=== PATIENT | male | born 1955 | race Caucasian/White ===

== ENCOUNTER 2018-05-13 11:18 | Day surgery (SDC) | payer BC ==
[~2018-05-13 11:18] MED LIST: Metoclopramide 10 MG/2 ML SDV IV PRN; Sodium Chloride 0.9% 1,000 ML IV SCH
[2018-05-13] MEDS ORDERED: Midazolam 1 MG/ML 5 ML SDV ONE (13:00)
[2018-05-13] MEDS ORDERED: Propofol 1,000 MG/100 ML SDV ONE (13:00)
[2018-05-13] MEDS ORDERED: Atropine 0.4 MG/ML SDV ONE (13:00)
--- NOTE | 2018-05-13 18:13 | OR ---
DATE OF OPERATION: 05/13/2018 PREOPERATIVE DIAGNOSIS: Screening colonoscopy. POSTOPERATIVE DIAGNOSIS: Screening colonoscopy. PROCEDURE: Colonoscopy. ANESTHESIA: MAC. ESTIMATED BLOOD LOSS: None. COMPLICATIONS: None. INDICATION FOR THE PROCEDURE: The patient is a 62-year-old male who was here for a screening colonoscopy. Last had a colonoscopy about 10 years ago. He has had no change in bowel habits since that time. He is here today for screening colonoscopy. DESCRIPTION OF PROCEDURE: Informed consent was obtained from the patient. The patient was taken to the operating room and placed on the table in left lateral decubitus position. Monitored anesthesia care was administered. Digital rectal exam performed and was normal. Colonoscope was then advanced through the anus directed toward the cecum. Cecum was reached and identified by the appendiceal orifice as well as ileocecal valve. Colonoscope was then slowly withdrawn. No masses. No polyps. No areas of ischemia or inflammation. No AV malformations. No diverticula. Retroflexion then performed in the rectum was also otherwise unremarkable. Colonoscope then withdrawn. FINDINGS: Normal colonoscopy. RECOMMENDATIONS: We would recommend repeat screening colonoscopy in 10 years. CHINTAN /[id number]
== END 2018-05-13 14:20 | disposition home or self-care (01) ==
LOC: LB.SDS 11:18
PROVIDERS: ATTEND Surgery
DX: Z12.11 Encounter for screening for malignant neoplasm of colon (principal); Z98.890 Other specified postprocedural states
CPT/HCPCS: 45378; J7030; J0461; J2250; J2704

== ENCOUNTER 2018-07-05 07:01 | Day surgery (SDC) | payer BC ==
[2018-07-05] MEDS ORDERED: Lactated Ringers 1,000 ML IV SCH (07:30)
[2018-07-05] MEDS ORDERED: Acetaminophen/HYDROcodone 325-5 MG Tab PO PRN (07:30)
[2018-07-05] MEDS: ceFAZolin 1 GM in Sodium Chloride 0.9% 50 ML IV ONE ×2 (09:15→15:27)
[2018-07-05] MEDS ORDERED: fentaNYL 250 MCG/5 ML SDV ONE (09:30)
[2018-07-05] MEDS ORDERED: Propofol 200 MG/20 ML SDV ONE (09:30)
--- NOTE | 2018-07-20 09:44 | OR ---
DATE OF OPERATION: 07/05/2018 PREOPERATIVE DIAGNOSIS: Right carpal tunnel syndrome. POSTOPERATIVE DIAGNOSIS: Right carpal tunnel syndrome. PROCEDURE: Right carpal tunnel release. ANESTHESIA: Inocencia block. SURGEON: Chintan Gaming MD [employer] INSPECTOR: Kalpesh Russell RN. SPECIMEN: None. DRAINS: None. ESTIMATED BLOOD LOSS: Minimal. COMPLICATIONS: None apparent. DESCRIPTION OF PROCEDURE: After informed consent was obtained, the patient was brought to the operating room, where a Harman block was performed uneventfully. The right upper extremity was prepped and draped sterilely, a time-out was held, and antibiotics were confirmed. An incision was made in line with the radial border of the ring finger following Gilmore's cardinal line of the volar wrist crease, dissecting sharply through the skin, subcutaneous tissue, and palmar aponeurosis, down on to the transverse carpal ligament. This was released just off the radial border of the hook of hamate, and it was released in its entirety. The distal aspect of the volar antebrachial fascia was released with tenotomies. We inspected the carpal canal, and the nerve and motor branch were intact and normal in appearance. We copiously irrigated, closed with 4-0 nylon, and sterile dressings were applied. The patient was brought to the recovery room in stable condition having tolerated the procedure well. MADIHA/LATRICIA /[id number]
== END 2018-07-05 12:15 | disposition home or self-care (01) ==
LOC: LB.SDS 07:01
PROVIDERS: ATTEND Orthopaedic Surgery
DX: G56.01 Carpal tunnel syndrome, right upper limb (principal); I10 Essential (primary) hypertension; G47.33 Obstructive sleep apnea (adult) (pediatric); Z99.89 Dependence on other enabling machines and devices; Z79.82 Long term (current) use of aspirin
CPT/HCPCS: A9270-GY; J0690; J2704; J3010; J7050; J7120